=== PATIENT | male | born 1990 | race Caucasian/White ===

== ENCOUNTER 2020-02-24 16:39 | Inpatient (IN) | payer OTHER ==
[~2020-02-24] VITALS: Ht 175.3 cm; Wt 72.6 kg
[2020-02-24 16:50] VITALS: Ht 175.3 cm; Wt 72.6 kg
[2020-02-24] MEDS ORDERED: TRESIBA FL100 UNIT/1 SQ (17:26)
[2020-02-24] MEDS ORDERED: HUMALOG JU100 UNIT/1 SQ (17:27)
[2020-02-24 17:58] LABS: PLATELET COUNT 267 x10^3mcL (130-400); RED CELL DISTRIBUTION WIDTH 12.4 % (11.5-14.5)
[2020-02-24 18:07] LABS: CALCIUM 8.9 mg/dL (8.5-10.1); CARBON DIOXIDE 29.6 mmol/L (21-32); CHLORIDE SERUM 97 mmol/L (98-107); CREATININE SERUM 1.4 mg/dL (0.7-1.3); GFR1 > 60 mL/min; GLUCOSE SERUM 398 mg/dL (74-106); POTASSIUM SERUM 4.4 mmol/L (3.5-5.1); SODIUM SERUM 133 mmol/L (136-145)
[2020-02-24 18:11] LABS: ALBUMIN 3.7 g/dL (3.4-5.0); ALKALINE PHOSPHATASE 78 U/L (46-116); ALT/SGPT 33 U/L (16-63); AST/SGOT 15 U/L (15-37); BILIRUBIN TOTAL 0.5 mg/dL (0.20-1.00); TOTAL PROTEIN, SERUM 7.7 g/dL (6.4-8.2)
[2020-02-25 07:53] LABS: CALCIUM 8.6 mg/dL (8.5-10.1); CARBON DIOXIDE 29.1 mmol/L (21-32); CHLORIDE SERUM 100 mmol/L (98-107); GFR1 > 60 mL/min; GLUCOSE SERUM 351 mg/dL (74-106); POTASSIUM SERUM 4.1 mmol/L (3.5-5.1); SODIUM SERUM 134 mmol/L (136-145)
[2020-02-25 08:05] LABS: BASOPHIL % 0.5 % (0-2); PLATELET COUNT 269 x10^3mcL (130-400); RED CELL DISTRIBUTION WIDTH 12.8 % (11.5-14.5)
[2020-02-25 09:56] VITALS: BP 121/78
[2020-02-25 12:48] VITALS: BP 113/77
[2020-02-25 16:20] VITALS: BP 92/59
[2020-02-25 16:54] VITALS: BP 139/73
== END 2020-02-25 20:20 | disposition home or self-care (01) | DRG 815 ==
LOC: ED 16:39 → DU 19:29
PROVIDERS: Emergency Medicine; ADMIT Internal Medicine; ATTEND Internal Medicine
DX: T67.01XA Heatstroke and sunstroke, initial encounter (principal); I31.9 Disease of pericardium, unspecified; E11.9 Type 2 diabetes mellitus without complications; E86.0 Dehydration; R79.89 Other specified abnormal findings of blood chemistry; X58.XXXA Exposure to other specified factors, initial encounter; Y93.89 Activity, other specified; Y92.89 Other specified places as the place of occurrence of the external cause; Y99.8 Other external cause status
CPT/HCPCS: 82962; G0378; J1815; J2405; J7030; Q0092